=== PATIENT | female | born 1965 | race Caucasian/White ===

== ENCOUNTER → 2017-05-20 | Outpatient (CLI) | payer OTHER ==
[~2017-05-20] MED LIST: AMLO-110 PO; ASPCH81X PO; LOVAZA PO; MULT-513 PO
[2017-05-20 13:10] LABS: ALT/SGPT 28 U/L (12-78); AST/SGOT 19 U/L (15-37); BLOOD UREA NITROGEN 21 mg/dl (7-18); BUN/CREATININE RATIO 30.1 (10-20); CALCIUM 9.3 mg/dl (8.5-10.1); CARBON DIOXIDE 29 mmol/L (21-32); CHLORIDE 107 mmol/L (98-107); CHOLESTEROL 187 mg/dl (0-200); CREATININE 0.68 mg/dl (0.60-1.20); GLUCOSE 89 mg/dl (70-99); POTASSIUM 4.1 mmol/L (3.5-5.1); SODIUM 141 mmol/L (136-145); TRIGLYCERIDES 56 mg/dl (0-150); VERY LOW DENSITY LIPOPROT CALC 11 mg/dl
[2017-05-20 13:12] LABS: ALB/GLOB RATIO 1.1 (0.9-2); ALKALINE PHOSPHATASE 63 U/L (45-117); CHOLESTEROL/HDL RATIO 2.3; HDL CHOLESTEROL 83 mg/dl; LDL CHOLESTEROL CALCULATED 93 mg/dl
== END | disposition home or self-care (01) ==
LOC: C.LABBFT 07:28
PROVIDERS: ATTEND Physician Assistant Medical
DX: Z13.220 Encounter for screening for lipoid disorders (principal)

== ENCOUNTER → 2017-05-28 | Outpatient (CLI) | payer OTHER ==
--- NOTE | 2017-05-28 14:18 | MAMMOGRAPHY REPORT ---
BILATERAL DIGITAL SCREENING MAMMOGRAM TOMOSYNTHESIS WITH CAD: 05/28/2017 CLINICAL HISTORY: Routine screening. Patient has no complaints. TECHNIQUE: Breast tomosynthesis in addition to standard 2D mammography was performed. Current study was also evaluated with a Computer Aided Detection (CAD) system. COMPARISON: Comparison is made to exams dated: 05/27/2016 mammogram, 05/24/2015 mammogram, 04/12/2014 ma mmogram, 04/07/2013 mammogram, 09/02/2011 mammogram - [facility], and 11/14/2009 mammo gram. BREAST COMPOSITION: The tissue of both breasts is heterogeneously dense, which may obscure small mas ses. FINDINGS: No suspicious masses, calcifications, or areas of architectural distortion are noted in ei ther breast. There has been no significant interval change compared to prior exams. IMPRESSION: ACR BI-RADS CATEGORY 1: NEGATIVE There is no mammographic evidence of malignancy. A 1 year screening mammogram is recommended. The pa tient will receive written notification of the results. Approximately 10% of breast cancers are not detected with mammography. A negative mammographic report should not delay biopsy if a clinically suggestive mass is present. Mireya Giles M.D. ah/:05/28/2017 12:14:30 [employer] Director: Tootie SELBY(Anastacia)(M), [facility] letter sent: Normal 1/2 BI-RADS Code: ACR BI-RADS Category 1: Negative
== END | disposition home or self-care (01) ==
LOC: C.MAMM 11:46
PROVIDERS: ATTEND Obstetrics & Gynecology
DX: Z12.31 Encounter for screening mammogram for malignant neoplasm of breast (principal)

== ENCOUNTER → 2017-07-25 | Outpatient (CLI) | payer OTHER ==
[~2017-07-25] MED LIST changes: +GADAVIST IV PRN
--- NOTE | 2017-07-25 14:11 | DIAGNOSTIC IMAGING REPORT ---
BRAIN COMBO FOR IAC CLINICAL HISTORY: W/IAC'S,HEARING LOSS hearing loss TECHNIQUE: Multiaxial MRI acquisition with attention to the internal auditory canals COMPARISON STUDY: None FINDINGS: Diffusion-weighted images are negative for an acute ischemic event. Coronal FLAIR images demonstrate several foci of increased signal within the left optic radiations as well as subcortical regions of the frontal lobes bilaterally. This is nonspecific. It can be seen patient with a history of chronic headache. Anterolateral canal is symmetric. 7th and 8th nerves are unremarkable. Sella and parasellar regions are within normal limits. IMPRESSION: 1. Normal internal auditory canals. 2. No abnormal postcontrast enhancement. 3. Several nonspecific foci of increased signal within the cortical frontal regions bilaterally as well as left optic radiations. 4. These are nonspecific, but can be seen patient with a history of chronic headache, versus the less likely possibility of a demyelinating disorder The above report was generated using voice recognition software. It may contain grammatical, syntax or spelling errors. Electronically signed by: Vicente Allen M.D. 07/25/2017 2:09 PM Dictated Date/Time: 07/25/2017 2:03 PM
== END | disposition home or self-care (01) ==
LOC: C.MRI 12:43
PROVIDERS: ATTEND Physician Assistant
DX: H93.19 Tinnitus, unspecified ear (principal); H90.3 Sensorineural hearing loss, bilateral; M26.629 Arthralgia of temporomandibular joint, unspecified side